=== PATIENT | female | born 1990 | race Caucasian/White ===

== ENCOUNTER 2020-04-23 00:45 | Inpatient (IN) | payer BC ==
[2020-04-23] MEDS ORDERED: LIDOCAINE 0.5% (PF) 5 MG/ML (50 ML SDV) SQ PRN (01:21)
[2020-04-23] MEDS ORDERED: OXYTOCIN 10 UNIT/ML 1 ML VIAL IM PRN (01:21)
[2020-04-23] MEDS ORDERED: TERBUTALINE 1 MG/ML VIAL SQ PRN (01:21)
[2020-04-23] MEDS ORDERED: CARBOPROST TROMETHAMINE 250 MCG/ML 1 ML AMP IM PRN (01:21)
[2020-04-23] MEDS ORDERED: METHYLERGONOVINE 0.2 MG/ML 1 ML AMP IM PRN (01:21)
[2020-04-23] MEDS ORDERED: PENICILLIN G POTASSIUM 5,000,000 UNIT in DEXTROSE 5% IN WATER 100 ML IVPB ONE ×2 (01:30)
[2020-04-23] MEDS: LACTATED RINGERS 1,000 ML IV SCH ×3 (01:42→22:32)
[2020-04-23 01:44] LABS: Basophils % (A) 0 %; Eosinophils # (A) 0.1 k/uL (0-0.7); Eosinophils % (A) 1 %; HCT 35.3 % (34.0-46.0); HGB 12.5 gm/dL (11.4-16.0); Lymphocytes # (A) 2.2 k/uL (1.0-4.8); Lymphocytes % (A) 14 %; MCH 33.1 pg (25.0-35.0); MCHC 35.5 g/dL (31.0-37.0); MCV 93.1 fL (80.0-100.0); Mean Platelet Volume 7.7; Monocytes # (A) 0.9 k/uL (0-1.0); Monocytes % (A) 5 %; Neutrophils # (A) 12.4 k/uL (1.3-7.7); Neutrophils % (A) 78 %; Platelet Count 240 k/uL (150-450); RBC 3.79 m/uL (3.80-5.40); RDW 14.3 % (11.5-15.5); WBC 15.8 k/uL (3.8-10.6)
[2020-04-23] MEDS: BUTORPHANOL 1 MG/ML 1 ML VIAL IV PRN ×2 (02:52→04:54)
[2020-04-23] MEDS: PENICILLIN G POTASSIUM 2,500,000 UNIT in DEXTROSE 5% IN WATER 100 ML IVPB SCH ×6 (06:09→22:32)
[2020-04-23] MEDS ORDERED: ROPIVACAINE 5MG/ML 20ML VIAL ONE (06:49)
[2020-04-23] MEDS ORDERED: fentaNYL (PF) 50 MCG/ML 5 ML AMP ONE (06:49)
[2020-04-23] MEDS ORDERED: PHENYLEPHRINE-0.9% NACL SYG 1,000 MCG/10 ML SYRINGE ONE (06:49)
[2020-04-23] MEDS ORDERED: SODIUM CHLORIDE 0.9% 100 ML BAG ONE (06:49)
--- NOTE | 2020-04-23 07:24 | P.HPOB ---
History of Present Illness H&P Date: 04/23/20 Chief Complaint: Strong regular uterine contractions This is a 29-year-old white female 1 para 0 EDC 04/23/2020 at 40 weeks gestation who presented through the night with strong regular uterine contractions in spontaneous active labor. She denied vaginal bleeding or fluid leakage. Fetus is been active throughout the . Past medical history is negative. Past surgical history is negative. Current medications vitamins. ALLERGIES none known. Social history father of the baby is involved, patient denies alcohol drug use or tobacco use. Family history significant for ulcerative colitis, heart disease, hypertension. history blood type A-, rubella status nonimmune. VDRL testing, urine culture, hepatitis B surface antigen, HIV testing, gonorrhea and chlamydia cultures all negative. Group B strep cultures positive. One-hour Glucola 112. On exam patient is 5 foot 5 inches, 185 pounds, blood pressure 140/80. Vital signs are stable and she is afebrile. General physical exam is within normal limits. Cervix is 7 cm dilated, 90% effaced, -1 station, vertex presentation. Artificial amniorrhexis reveals thin meconium-stained fluid. heart tones are consistent with reactive NST. Impression: 40 week intrauterine , here in active spontaneous labor. Send meconium. All signs reassuring. Plan: Epidural has just been placed per patient's request. Continue close maternal and surveillance. Anticipate normal spontaneous vaginal delivery. Review of Systems As per HPI Past Medical History Past Medical History: No Reported History History of Any Multi-Drug Resistant Organisms: None Reported Past Surgical History: No Surgical Hx Reported Past Psychological History: No Psychological Hx Reported Smoking Status: Never smoker Past Alcohol Use History: Occasional Past Drug Use History: None Reported - Past Family History Mother Additional Family Medical History / Comment(s): ulcerative colitis Medications and Allergies Home Medications Medication Instructions Recorded Confirmed Type Aspirin [Adult Low Dose Aspirin EC] 1 tab PO DAILY 04/23/20 04/23/20 History Ferrous Sulfate [Iron] 1 tab PO BID 04/23/20 04/23/20 History Pnv No.95/Ferrous Fum/Folic AC 1 tab PO DAILY 04/23/20 04/23/20 History [ Multivitamin Tablet] Allergies Allergy/AdvReac Type Severity Reaction Status Date / Time No Known Allergies Allergy Verified 12/26/14 18:41 Exam Vital Signs Temp Pulse Resp BP Pulse Ox 04/23/20 01:07 97.1 F L 96 16 140/80 98 Intake and Output 04/22/20 04/23/20 04/23/20 22:59 06:59 14:59 Other: # Voids 2 Weight 83.915 kg Please see dictation under HPI Results Result Diagrams: 04/23/20 01:20 Abnormal Lab Results - Last 24 Hours (Table) 04/23/20 Range/Units 01:20 WBC 15.8 H (3.8-10.6) k/uL RBC 3.79 L (3.80-5.40) m/uL Neutrophils # 12.4 H (1.3-7.7) k/uL Assessment and Plan Assessment: 40 week intrauterine , spontaneous active labor. Thin meconium-stained fluid. All signs otherwise reassuring. Plan: Continue close maternal and surveillance. Anticipate normal spontaneous vaginal delivery. Time with Patient: Less than 30
[2020-04-23] MEDS: OXYTOCIN 30 UNITS/500 ML NS 30 UNIT in SALINE 1 500ML.BAG IV SCH ×2 (10:21→13:23)
[2020-04-23] MEDS ORDERED: LANOLIN CREAM 5 GM TUBE TOPICAL PRN (12:57)
[2020-04-23] MEDS ORDERED: diphenhydrAMINE ELIXIR 25 MG/10 ML CUP PO PRN (12:57)
[2020-04-23] MEDS ORDERED: ACETAMINOPHEN TAB 325 MG TAB PO PRN (12:57)
[2020-04-23] MEDS ORDERED: MEASLES-MUMPS-RUBELLA VACC/PF 12,500 UNIT/0.5 ML VIAL SQ ONE (12:57)
[2020-04-23] MEDS ORDERED: ZOLPIDEM 5 MG TAB PO PRN (12:57)
[2020-04-23] MEDS ORDERED: diphenhydrAMINE 25 MG CAP PO PRN (12:57)
[2020-04-23] MEDS ORDERED: HYDROCORTISONE 2.5% RECTAL CREAM 30 GM TUBE RECTAL PRN (12:57)
[2020-04-23] MEDS ORDERED: BENZOCAINE/MENTHOL SPRAY 1 GM/SPRAY AEROSOL TOPICAL PRN (12:57)
[2020-04-23] MEDS ORDERED: diphenhydrAMINE 50 MG CAP PO PRN (12:57)
[2020-04-23] MEDS ORDERED: diphenhydrAMINE 50 MG/ML 1 ML VIAL IVP PRN ×2 (12:57)
[2020-04-23] MEDS ORDERED: SIMETHICONE 80 MG CHEWABLE PO PRN (12:57)
--- NOTE | 2020-04-23 12:57 | P.PROBDLV ---
Vaginal Delivery Note - . Vaginal Delivery Note: This is a 29-year-old white female 1 para 0 EDC 04/23/2020 at 40 weeks gestation. Patient presented for induction but actually arrived in active spontaneous labor through the night. remarkable for blood type A-, rubella status nonimmune. Please see dictated history and physical for details. Positive group B strep cultures also noted. Penicillin G has been given 3 doses. Epidural was placed per her request. Oxytocin was started and titrated per hospital protocol. Patient became completely dilated at 1155 hours and began the second stage of labor at that time. Ultimately the perineal body was prepped and draped in the usual fashion. With excellent maternal expulsive efforts the infant's head delivered occiput anterior and restituted accordingly. There was no nuchal cord noted. The right or anterior shoulder was delivered easily from underneath the pubic symphysis at which time the oropharynx, nasopharynx, and external nares were all bulb suctioned on the perineal body. Patient was officially delivered a liveborn female at 1234 hours. Umbilical cord was doubly clamped and ligated, she was handed to waiting route vending machine servicer for evaluation where score of 8 and 9 at one and 5 minutes respectively were given. Placenta delivered spontaneously, it was inspected and noted to be intact with trivascular cord at 1237 hours. Uterus is then massaged. Careful inspection of the cervix, vagina, perineum, periurethral, and perirectal areas revealed a small midline second-degree perineal laceration. This was injected with 1% lidocaine and repaired in the usual fashion using 3-0 repeat. Reapproximation appears excellent. All sponge needle and enhancement counts are correct at the end of the procedure. Infant weighed 3895 g or 8 lbs. 9 oz.
[2020-04-23] MEDS: IBUPROFEN 600 MG TAB PO SCH ×2 (13:17→22:33)
[2020-04-23] MEDS: SENNOSIDES-DOCUSATE SODIUM 1 EACH TAB PO SCH (20:38)
[2020-04-23 22:31] VITALS: RESP 16
[2020-04-24] MEDS: IBUPROFEN 600 MG TAB PO SCH ×2 (00:50→08:18)
--- NOTE | 2020-04-24 07:34 | P.DS ---
Providers Date of admission: 04/23/20 00:45 Expected date of discharge: 04/24/20 Attending physician: Eugenia Uribe Primary care physician: Stated None Hospital Course: This is a 29-year-old white female 1 para 0 EDC 04/23/2020 at 40 weeks gestation who presented in active spontaneous labor. Her menses remarkable for positive group B strep cultures, blood type A negative, please see admitting H&P for details. Epidural was placed per patient's request. She went on to deliver vaginally a liveborn female infant with scores of 8 and 9 at one and 5 minutes respectively. Infant weight 8 lbs. 9 oz. or 3895 g. The was a small second- degree perineal laceration easily repaired. Please see dictated delivery note for details. This morning the patient and her baby are both doing well. Patient is voiding, ambulating, passing flatus without difficulty. Vital signs are stable and she is afebrile. General physical exam is within normal limits. is doing well, is ready for discharge home today. Patient will follow-up with me in the office in 6 weeks. I have reminded her no intercourse, tampons or douching. She will use [id number] Advil or Aleve, or Motrin as needed for pain. She will call with any fevers shakes or chills, foul smelling or copious lochia, with the passage of large blood clots, with any pain not alleviated by [id number] products, or indeed with any concerns. Discuss contraceptive options and we will discuss this further in the office. Assessment: Doing well day #1 Patient Condition at Discharge: Good Plan - Discharge Summary Discharge Rx Participant: No New Discharge Prescriptions: No Action Pnv No.95/Ferrous Fum/Folic AC [ Multivitamin Tablet] 1 tab PO DAILY Ferrous Sulfate [Iron] 1 tab PO BID Aspirin [Adult Low Dose Aspirin EC] 1 tab PO DAILY Discharge Medication List Aspirin [Adult Low Dose Aspirin EC] 1 tab PO DAILY 04/23/20 [History] Ferrous Sulfate [Iron] 1 tab PO BID 04/23/20 [History] Pnv No.95/Ferrous Fum/Folic AC [ Multivitamin Tablet] 1 tab PO DAILY 04/23/20 [History] Follow up Appointment(s)/Referral(s): Eugenia Uribe MD [STAFF PHYSICIAN] - 6 Weeks Discharge Disposition: HOME SELF-CARE
[2020-04-24] MEDS: SENNOSIDES-DOCUSATE SODIUM 1 EACH TAB PO SCH (08:18)
[2020-04-24 08:52] VITALS: BP 121/79; PULSE 86; TEMP 97.4
== END 2020-04-24 14:35 | disposition home or self-care (01) | DRG 806 ==
LOC: 4FBP 00:45
PROVIDERS: ADMIT Obstetrics & Gynecology; ATTEND Obstetrics & Gynecology
PROC: 3E0R3BZ Introduction of Anesthetic Agent into Spinal Canal, Percutaneous Approach (ICD-10-PCS; principal; 2020-04-23)
PROC: 10E0XZZ Delivery of Products of Conception, External Approach (ICD-10-PCS; principal; 2020-04-23)
PROC: 00HU33Z Insertion of Infusion Device into Spinal Canal, Percutaneous Approach (ICD-10-PCS; principal; 2020-04-23)
PROC: 0KQM0ZZ Repair Perineum Muscle, Open Approach (ICD-10-PCS; principal; 2020-04-23)
PROC: 3E0134Z Introduction of Serum, Toxoid and Vaccine into Subcutaneous Tissue, Percutaneous Approach (ICD-10-PCS; 2020-04-23)
DX: O77.0 Labor and delivery complicated by meconium in amniotic fluid (principal); O98.82 Other maternal infectious and parasitic diseases complicating childbirth; Z37.0 Single live birth; B95.1 Streptococcus, group B, as the cause of diseases classified elsewhere; O70.1 Second degree perineal laceration during delivery; Z23 Encounter for immunization; Z3A.40 40 weeks gestation of pregnancy; Z82.49 Family history of ischemic heart disease and other diseases of the circulatory system; Z83.79 Family history of other diseases of the digestive system; O26.893 Other specified pregnancy related conditions, third trimester; Z67.11 Type A blood, Rh negative; Z79.82 Long term (current) use of aspirin; Z79.899 Other long term (current) drug therapy
CPT/HCPCS: 85025; 86850; 86900; 86901; 90471; 90707

== ENCOUNTER 2024-03-07 06:00 | Inpatient (IN) | payer BC ==
[2024-03-07] MEDS ORDERED: miSOPROStoL 200 MCG TAB RECTAL PRN (06:20)
[2024-03-07] MEDS ORDERED: miSOPROStoL 200 MCG TAB PO PRN (06:20)
[2024-03-07] MEDS ORDERED: OXYTOCIN 10 UNIT/ML 1 ML VIAL IM PRN (06:20)
[2024-03-07] MEDS ORDERED: CARBOPROST TROMETHAMINE 250 MCG/ML 1 ML AMP IM PRN (06:20)
[2024-03-07] MEDS ORDERED: LIDOCAINE 0.5% (PF) 5 MG/ML (50 ML SDV) SQ PRN (06:20)
[2024-03-07] MEDS ORDERED: TRANEXAMIC 1,000 MG/100ML-NACL 1,000 MG in EMPTY BAG 1 BAG IV PRN (06:20)
[2024-03-07] MEDS ORDERED: TERBUTALINE 1 MG/ML VIAL SQ PRN (06:20)
[2024-03-07] MEDS: LACTATED RINGERS 1,000 ML IV SCH (06:46)
[2024-03-07] MEDS: AMPICILLIN 2,000 MG in SODIUM CHLORIDE 0.9% 100 ML IVPB STA (06:47)
[2024-03-07] MEDS: OXYTOCIN 30 UNITS/500 ML NS 30 UNIT in SALINE 1 500ML.BAG IV SCH (06:47)
[2024-03-07 09:38] LABS: Basophils % (A) 0 %; Eosinophils % (A) 0 %; HCT 31.7 % (34.0-46.0); HGB 10.4 gm/dL (11.4-16.0); Lymphocytes # (A) 1.9 k/uL (1.0-4.8); Lymphocytes % (A) 20 %; MCH 28.3 pg (25.0-35.0); MCHC 32.9 g/dL (31.0-37.0); MCV 85.9 fL (80.0-100.0); Mean Platelet Volume 7.3; Monocytes # (A) 0.5 k/uL (0-1.0); Monocytes % (A) 5 %; Neutrophils # (A) 6.9 k/uL (1.3-7.7); Neutrophils % (A) 73 %; Platelet Count 247 k/uL (150-450); RBC 3.69 m/uL (3.80-5.40); RDW 13.4 % (11.5-15.5); WBC 9.5 k/uL (3.8-10.6)
[2024-03-07] MEDS: AMPICILLIN 1,000 MG in SODIUM CHLORIDE 0.9% 50 ML IVPB SCH (10:50)
[2024-03-07] MEDS ORDERED: fentaNYL (PF) 50 MCG/ML 5 ML AMP ONE (12:56)
[2024-03-07] MEDS ORDERED: SODIUM CHLORIDE 0.9% 250 ML BAG ONE (12:56)
[2024-03-07] MEDS ORDERED: ROPIVACAINE 5 MG/ML 30 ML VIAL ONE (12:56)
[2024-03-07] MEDS ORDERED: LANOLIN CREAM 1 GM TUBE TOPICAL PRN (14:50)
[2024-03-07] MEDS ORDERED: ZOLPIDEM 5 MG TAB PO PRN (14:50)
[2024-03-07] MEDS ORDERED: diphenhydrAMINE 50 MG/ML 1 ML VIAL IVP PRN ×2 (14:50)
[2024-03-07] MEDS ORDERED: diphenhydrAMINE 50 MG CAP PO PRN (14:50)
[2024-03-07] MEDS ORDERED: BENZOCAINE/MENTHOL SPRAY 1 GM/SPRAY AEROSOL TOPICAL PRN (14:50)
[2024-03-07] MEDS ORDERED: SIMETHICONE 80 MG CHEWABLE PO PRN (14:50)
[2024-03-07] MEDS ORDERED: diphenhydrAMINE 25 MG CAP PO PRN (14:50)
[2024-03-07] MEDS ORDERED: HYDROCORTISONE 2.5% RECTAL CREAM 30 GM TUBE RECTAL PRN (14:50)
--- NOTE | 2024-03-07 14:50 | P.PROBDLV ---
Vaginal Delivery Note - . Vaginal Delivery Note: 33-year-old G3, P2 presented to labor and delivery at 39-5/7 weeks for scheduled induction of labor. Patient was admitted to labor and delivery and Pitocin induction of labor was begun. Patient underwent amniotomy and clear fluid was obtained. P patient progressed through labor eventually coming uncomfortable and requesting epidural. Epidural was placed without difficulty by the anesthesia department. Patient progressed to complete with excellent maternal effort had a normal spontaneous vaginal delivery of a viable male infant in occiput anterior presentation loose nuchal cord delivered through, compound right hand. Spontaneous cry was noted at . After 2 and delay the umbilical cord was doubly clamped and cut. The stent was delivered spontaneously intact with three-vessel cord being noted. Inspection the patient's vaginal vault first-degree vaginal laceration was appreciated. This was injected with lidocaine and repaired in the usual fashion with 3-0 Rapide. Hemostasis was noted after repair. Uterus was noted to be firm below the umbilicus. Red rubber catheter was used to drain the bladder of approximately 100 cc of clear yellow urine. Estimated blood loss 100 cc cleared all counts were noted correct x 2. Patient and infant tolerated delivery well and are resting comfortably.
[2024-03-07] MEDS: IBUPROFEN 800 MG TAB PO SCH (15:11)
[2024-03-07] MEDS: METHYLERGONOVINE 0.2 MG/ML 1 ML AMP IM PRN (15:25)
[2024-03-07] MEDS: SENNOSIDES-DOCUSATE SODIUM 1 EACH TAB PO SCH (19:59)
[2024-03-07] MEDS: ACETAMINOPHEN TAB 500 MG TAB PO SCH (19:59)
[2024-03-07 20:12] VITALS: RESP 18
[2024-03-08 08:24] VITALS: BP 129/76; PULSE 93; TEMP 97.9
--- NOTE | 2024-03-08 09:05 | P.DS ---
Providers Date of admission: 03/07/24 06:00 Expected date of discharge: 03/08/24 Attending physician: Sunitha Vo Primary care physician: Stated None - Discharge Diagnosis(es) (1) Term Current Visit: Yes Status: Acute (2) Obstetrical laceration, first degree Current Visit: Yes Status: Acute (3) Normal vaginal delivery Current Visit: No Status: Acute Hospital Course: 33-year-old 3 now para 3-0-0-3 that presented to labor and delivery at 39-5/7 weeks for scheduled induction of labor. Patient has been receiving routine care which has been essentially uncomplicated. Patient was admitted to labor and delivery and Pitocin induction of labor was begun. Patient underwent amniotomy and clear fluid was obtained. Patient progressed through labor eventually becoming uncomfortable and requesting epidural. Epidural was placed without difficulty by the anesthesia department. Patient made good progress toward complete dilation. Once completely dilated to begin pushing and had a normal spontaneous vaginal delivery of a viable male infant at 1426, weight of 7 pounds 8 ounces, Apgars of 9 and 9 at 1 and 5 minutes respectively. Loose nuchal cord and right compound hand were noted at delivery. First-degree vaginal laceration was appreciated and repaired in the usual fashion. course has been uneventful. On this day #1 she is ambulating and voiding without difficulty. She is tolerating a regular diet without nausea or vomiting. She states her pain is well-controlled. She would like discharge home later today at 24 hours. Patient Condition at Discharge: Good Plan - Discharge Summary New Discharge Prescriptions: No Action Pnv No.95/Ferrous Fum/Folic AC [ Multivitamin Tablet] 1 tab PO DAILY Ferrous Sulfate [Iron] 1 tab PO BID Aspirin [Adult Low Dose Aspirin EC] 1 tab PO DAILY Discharge Medication List Aspirin [Adult Low Dose Aspirin EC] 1 tab PO DAILY 04/23/20 [History] Ferrous Sulfate [Iron] 1 tab PO BID 04/23/20 [History] Pnv No.95/Ferrous Fum/Folic AC [ Multivitamin Tablet] 1 tab PO DAILY 04/23/20 [History] Follow up Appointment(s)/Referral(s): Sunitha Vo DO [Doctor of Osteopathic Medicine] - 04/18/24 1:45 pm Patient Instructions/Handouts: Vaginal Delivery (DC), Vaginal Delivery (GEN) Activity/Diet/Wound Care/Special Instructions: Bwiy-nyv-tvkroui ibuprofen 600 mg or 3 tablets every 6 hours as needed for pain. No tub baths or intercourse until 6 weeks . Patient is to call the office to make a routine visit for 6 weeks. Should she have any concerns prior this visit she is urged to call the office Discharge Disposition: HOME SELF-CARE
[2024-03-08] MEDS: PRENATAL VIT-IRON-FOLIC ACID 1 EACH TABLET PO SCH (15:31)
--- NOTE | 2024-03-12 08:39 | P.HPOB ---
History of Present Illness H&P Date: 03/07/24 Chief Complaint: IUP at 39-5/7 weeks 33-year-old G3, P2 at 39-5/7 weeks that presents to labor and delivery for induction of labor. Patient has been receiving routine care with myself which has been essentially uncomplicated. Patient notes good movement denies vaginal bleeding or loss of fluid. On blood work this patient has a blood type of Review of Systems Constitutional: Denies chills, Denies fatigue, Denies fever Ears, nose, mouth and throat: Denies headache Cardiovascular: Reports leg edema Respiratory: Denies dyspnea Gastrointestinal: Denies constipation, Denies diarrhea, Denies nausea, Denies vomiting Genitourinary: Reports Past Medical History Past Medical History: No Reported History History of Any Multi-Drug Resistant Organisms: None Reported Past Surgical History: No Surgical Hx Reported Additional Past Surgical History / Comment(s): [place] teeth. Past Anesthesia/Blood Transfusion Reactions: No Reported Reaction Past Psychological History: No Psychological Hx Reported Smoking Status: Never smoker Past Alcohol Use History: Occasional Past Drug Use History: None Reported - Past Family History Mother Additional Family Medical History / Comment(s): ulcerative colitis Medications and Allergies Home Medications Medication Instructions Recorded Confirmed Type Aspirin [Adult Low Dose Aspirin EC] 1 tab PO DAILY 04/23/20 03/07/24 History Ferrous Sulfate [Iron] 1 tab PO BID 04/23/20 03/07/24 History Pnv No.95/Ferrous Fum/Folic AC 1 tab PO DAILY 04/23/20 03/07/24 History [ Multivitamin Tablet] Allergies Allergy/AdvReac Type Severity Reaction Status Date / Time No Known Allergies Allergy Verified 03/07/24 06:18 Exam Osteopathic Statement: *. No significant issues noted on an osteopathic structural exam other than those noted in the History and Physical/Consult. Vital Signs Temp Pulse Resp BP Pulse Ox 03/07/24 06:17 97 F L 78 16 132/69 98 Intake and Output 03/06/24 03/07/24 03/07/24 22:59 06:59 14:59 Other: Weight 84.368 kg Targeted physical exam is performed this date in general is a well-nourished well-developed female in no acute distress, breathing is nonlabored, heart has a regular rate and rhythm, abdomen is gravid, on cervical exam she is 3/70/-2 station amniotomy is performed clear fluid was obtained. heart tones noted be category 1 and she is jazmin every 2 to 3 minutes. Assessment and Plan (1) Term Current Visit: Yes Status: Acute Code(s): Z34.90 - ENCNTR FOR SUPRVSN OF NORMAL , UNSP, UNSP TRIMESTER SNOMED Code(s): 41903208 Plan: 33-year-old G3, P2 at 39-5/7 weeks presents for induction of labor. Patient is admitted and Pitocin induction of labor begun. Patient does request epidural for analgesia. Anesthesia will be notified.
== END 2024-03-08 15:30 | disposition home or self-care (01) | DRG 807 ==
LOC: 4FBP 06:00
PROVIDERS: ADMIT Obstetrics & Gynecology Obstetrics; ATTEND Obstetrics & Gynecology Obstetrics
PROC: 10907ZC Drainage of Amniotic Fluid, Therapeutic from Products of Conception, Via Natural or Artificial Opening (ICD-10-PCS; principal; 2024-03-07)
PROC: 10E0XZZ Delivery of Products of Conception, External Approach (ICD-10-PCS; principal; 2024-03-07)
PROC: 0HQ9XZZ Repair Perineum Skin, External Approach (ICD-10-PCS; principal; 2024-03-07)
PROC: 3E033VJ Introduction of Other Hormone into Peripheral Vein, Percutaneous Approach (ICD-10-PCS; principal; 2024-03-07)
DX: O32.6XX0 Maternal care for compound presentation, not applicable or unspecified (principal); Z37.0 Single live birth; O69.81X0 Labor and delivery complicated by cord around neck, without compression, not applicable or unspecified; O70.0 First degree perineal laceration during delivery; Z3A.39 39 weeks gestation of pregnancy
CPT/HCPCS: 85025; 86850; 86900; 86901